=== PATIENT | female | born 1965 | race Caucasian/White ===

== ENCOUNTER 2016-07-25 20:43 | Emergency (ER) | payer SELFPAY ==
[~2016-07-25] VITALS: Ht 162.6 cm; Wt 80.0 kg
[~2016-07-25 20:43] MED LIST: BENA40TA54; HYDR25TA6
[2016-07-25 20:47] VITALS: Ht 162.6 cm; Wt 80.0 kg
== END 2016-07-25 21:45 | disposition left against medical advice (07) ==
LOC: E/R 20:43
DX: Z53.21 Procedure and treatment not carried out due to patient leaving prior to being seen by health care provider (principal)

== ENCOUNTER 2018-07-26 17:56 | Emergency (ER) | payer SELFPAY ==
[~2018-07-26] VITALS: Wt 77.2 kg
[2018-07-26] MEDS ORDERED: PROCHLORPERAZINE 10 MG INJ IV STA (18:52)
[2018-07-26] MEDS ORDERED: HYDROmorphONE 1 MG/ML SYG IV STA (18:52)
[2018-07-26] MEDS ORDERED: DIPHENHYDRAMINE 50 MG INJ IV STA (18:52)
--- NOTE | 2018-07-26 19:59 | ERD ---
ER Documentation Chief Complaint Chief Complaint HEADACHE HPI This is a 52-year-old female complains of a headache onset a few hours prior to arrival that was gradual. No prior headache history is chronic. She complains of a headache located in the bilateral retro-orbital region that is throbbing with photophobia, phonophobia and worse with position change. No nausea vomiting no focal neurological complaints no fever no visual or speech change. ROS All systems reviewed and are negative except as per history of present illness. Medications Home Meds Reported Medications Hydrochlorothiazide (Hydrochlorothiazide) 25 Mg Tablet 09/29/09 Benazepril Hcl* (Lotensin*) 40 Mg Tablet 09/29/09 Allergies Allergies: Coded Allergies: No Known Drug Allergy (Verified Allergy, Mild, 09/29/09) PMhx/Soc History of Surgery: Yes (ECTOPIC SURGERY-10 YRS AGO) Hx Neurological Disorder: No Hx Respiratory Disorders: No Hx Cardiac Disorders: Yes (HYPERTENSION) Hx Miscellaneous Medical Probl: No Hx Alcohol Use: No Hx Substance Use: No Hx Tobacco Use: No FmHx Family History: No coronary disease Physical Exam Vitals Vital Signs Date Temp Pulse Resp B/P (MAP) Pulse Ox O2 O2 Flow FiO2 Time Delivery Rate 07/26/18 74 18 194/106 95 Room Air 18:35 (135) 07/26/18 97.8 72 16 214/124 98 17:58 (154) Physical Exam Const: Well-developed, well-nourished Head: Atraumatic, normocephalic Eyes: Normal Conjunctiva, PERRLA, EOMI, normal sclera, no nystagmus ENT: Normal External Ears, Nose and Mouth, moist mucus membranes. Neck: Full range of motion. No meningismus, no lymphadenopathy. Resp: Clear to auscultation bilaterally, no wheezing, rhonchi, rales Cardio: Regular rate and rhythm, no murmurs, S1 S2 present Abd: Soft, non tender x 4, non distended. Normal bowel sounds, no guarding or rebound, no pulsitile abdominal masses or bruits Skin: No petechiae or rashes, no ecchymosis , no maculopapular rash Back: No midline or flank tenderness Ext: No cyanosis, or edema, FROM x 4, normal inspection, neurovascularly intact x 4 Neur: Awake and alert, STR 5/5 x 4, sensation intact x 4, no focal findings, cerebellum intact Psych: Normal Mood and Affect Results 24 hrs Current Medications Medications Dose Sig/Cesilia Start Time Status Last (Trade) Ordered Route PRN Stop Time Admin Dose Reason Admin 10 mg ONCE STAT 07/26/18 DC 07/26/18 Prochlorperaz IV 18:52 07/26/18 19:18 ine 18:54 (Compazine Inj) 1 mg ONCE STAT 07/26/18 DC 07/26/18 Hydromorphone IV 18:52 07/26/18 19:18 HCl 18:54 (Dilaudid) 25 mg ONCE STAT 07/26/18 DC 07/26/18 Diphenhydrami IV 18:52 07/26/18 19:18 ne HCl 18:54 (Benadryl) Procedures/MDM Ordering MD: ANASTASIA COOL DO Location: E/R Room/Bed: PROCEDURE: CT Brain without contrast. CLINICAL INDICATION: Headache TECHNIQUE: A CT of the brain was performed on a multidetector CT scanner utilizing axial imaging from the skull base through the vertex without IV contrast. Multiplanar reformatted images were made. Images were reviewed on a PACS workstation. The CTDIvol is 39 mGy and the DLP is 715 mGycm. DICOM images are available. One or more of the following dose reduction techniques were utilized: 1.) Automated exposure control 2.) Adjustment of the mA +/- kV according to patient's size 3.) Use of iterative reconstruction technique. COMPARISON: None FINDINGS: There is no intracranial hemorrhage, mass effect, or midline shift. No extra- axial fluid collection is seen. The ventricles and sulci are normal in size and configuration. The density of the brain is normal, and the reyes white matter differentiation appears well-preserved. The visualized paranasal sinuses and osseous structures are grossly unremarkable. IMPRESSION: 1. No evidence of acute intracranial pathology. 2. The brain is normal in appearance. .Pranay Lombardo MD, Date Time Electronically viewed and signed by .Pranay Lombardo MD, on 07/26/2018 20:09 .A/ CC: ANASTASIA COOL DO [phone] Patient is feeling much better after the pain medication. Her symptomatology is positive for migraine headache. Will discharge with pain medication and warning signs Patient feels much better at this time, and vital signs are normal, symptoms have improved. I did give strict instructions to return to the ED if symptoms continue or worsen, patient will otherwise follow-up with primary care saw villegas. Patient understood instructions and agreed to plan. Disclaimer: Inadvertent spelling and grammatical errors are likely due to EHR/dictation software use and do not reflect on the overall quality of patient care. Also, please note that the electronic time recorded on this note does not necessarily reflect the actual time of the patient encounter. Departure Diagnosis: Primary Impression: Migraine headache Migraine type: unspecified Status migrainosus presence: without status migrainosus Intractability: not intractable Qualified Codes: G43.909 - Migraine, unspecified, not intractable, without status migrainosus Condition: Stable ANASTASIA COOL DO Jul 26, 2018 19:59
[2018-07-26] MEDS ORDERED: IBUP800T48 PO (20:49)
[2018-07-26] MEDS ORDERED: HYDR-3980 PO (20:49)
[2018-07-26] MEDS ORDERED: PROC10TA10 PO (20:49)
[2018-07-26] MEDS ORDERED: LISI40TA3 PO (21:11)
[2018-07-26 21:30] VITALS: BP 159/99; PULSE 66; RESP 16
== END 2018-07-26 21:40 | disposition home or self-care (01) ==
LOC: E/R 17:56
DX: G43.909 Migraine, unspecified, not intractable, without status migrainosus (principal); I10 Essential (primary) hypertension
CPT/HCPCS: 70450; 96374; 96375; 99285; J0780; J1170; J1200